=== PATIENT | male | born 1975 | race Caucasian/White ===

== ENCOUNTER 2019-07-16 05:44 | Day surgery (SDC) | payer OTHER ==
[2019-07-16] MEDS ORDERED: Nozin Nasal Sanitizer NASBOTH ONE (06:30)
[2019-07-16] MEDS ORDERED: Lactated Ringers 1,000 ML IV SCH (06:30)
[2019-07-16] MEDS ORDERED: ceFAZolin 1 GM in Premix Bag 1 BAG IV ONE (06:30)
[2019-07-16] MEDS ORDERED: Bupivacaine 0.5% 30 ML SDV ONE ×2 (06:46→07:28)
[2019-07-16] MEDS ORDERED: Midazolam 1 MG/ML 2 ML SDV ONE (07:26)
[2019-07-16] MEDS ORDERED: Propofol 200 MG/20 ML SDV ONE ×4 (07:26→10:05)
[2019-07-16] MEDS ORDERED: fentaNYL 100 MCG/2 ML SDV ONE ×2 (07:26→08:13)
--- NOTE | 2019-07-16 22:10 | OR ---
DATE OF PROCEDURE: 07/16/2019 SURGEON: Shen Szymanski MD PREOPERATIVE DIAGNOSES: 1. Partial-thickness rotator cuff tear. 2. Acromioclavicular arthrosis. 3. Possible superior labral tear. POSTOPERATIVE DIAGNOSES: 1. Partial rotator cuff tear, less than 50%. 2. Acromioclavicular arthrosis. 3. Superior labral tear. PROCEDURE: Arthroscopy right shoulder with: 1. Arthroscopic SLAP repair. 2. Decompression with acromioplasty and distal clavicle resection. ANESTHESIA: Block with sedation. INDICATIONS: Teofilo is a 44-year-old male with a history of persistent and progressive right shoulder pain. Examination and imaging are consistent with impingement, AC arthritis, and at least a partial thickness rotator cuff tear. Also has evidence of paralabral cyst and possible SLAP tear. He now presents to the operating room for evaluation of the right shoulder rotator cuff for possible repair as well as the labrum, and decompression with distal clavicle resection. Risks, benefits, and potential complications were discussed. DESCRIPTION OF PROCEDURE: After adequate anesthesia was obtained, patient placed in lateral decubitus position and secured with the beanbag positioner. Right shoulder and arm were then prepped and draped in sterile fashion. Ten pounds of traction was placed in shoulder traction unit. Standard posterior portal was established and the glenohumeral joint was inspected. This revealed no articular cartilage damage to the glenoid or humeral head. Fraying of the superior labrum was noted. Anterior labrum was intact. No evidence of Bankart lesion. Inferior and posterior labrum also intact. Biceps tendon showed some mild fraying at its attachment to the labrum with some very mild tendinopathy extending up to the base of the biceps. The superior aspect of the subscapularis also showed some very mild tendinopathy without evidence of tear. The undersurface of the rotator cuff had a small veil, superficial tear, which was less than 50% thickness of the supraspinatus and only approximately 4 to 5 mm in width. Anterior portal was established. The frayed aspect of the superior labrum was debrided and this revealed peel back of the superior labrum and the biceps attachment consistent with a SLAP tear. Small area on the underside of the rotator cuff was debrided again revealing the small partial-thickness tear. Shaver was used to debride the cartilage from the superior aspect of the glenoid. An accessory portal was then established through the rotator cuff interval and a ousmane was used to decorticate the superior glenoid. Drill guide was then placed just anterior to the biceps and a Mitek Gryphon anchor was secured. The sutures were brought out through the anterior portal. A 2nd anchor was then placed just posterior to the biceps and these were brought out through the accessory portal. A birdbeak suture grasper was then used to pass one limb of both the posterior anchor sutures around the labrum. The limb of 1 of the suture pairs in the anterior anchor was then passed in a similar fashion. The 2 posterior sutures were then tied down using standard arthroscopic technique with the knot behind the labrum. The more anterior one was evaluated and due to some deficiency of the labrum and the security of the posterior sutures, we decided to proceed with tying down just 1 set of sutures and the other was removed. Anterior sutures were tied and cut. The probe was then used to explore the repair, which was found to be quite stable. No other abnormalities were identified. The scope was removed and placed in the subacromial space. Significant amount of bursa was present. This was cleared using a combination of shaver and ablation wand. The bursa was somewhat adherent to the superior surface of the rotator cuff and was fairly erythematous. Undersurface of the acromion was identified and cleared of soft tissues with the ablation wand. Coracoacromial ligament was released from the anterolateral edge. A ousmane was then used to perform acromioplasty removing a portion of the undersurface of the acromion and bevelling this medially and posteriorly. Inferior osteophytes at the AC joint were readily visualized. The capsule was cleared with the ablation wand and starting from the lateral portal the undersurface of the distal clavicle was resected with a ousmane. The ousmane was then switched to the anterior portal and working from inferior to superior the distal clavicle was resected. Approximately 8 mm of the distal clavicle was resected. Once this was completed, the bursal surface of the rotator cuff was inspected. Arm was taken through internal and external rotation and abduction. The cuff was visualized and palpated with a probe with no evidence of full-thickness tear or significant thinning of the partial-thickness tear. The scope was withdrawn. Port sites were closed with 3-0 Monocryl and Steri-Strips were applied. Sterile dressing was then placed. The patient tolerated the procedure very well. There were no complications. He was taken from the operating room in stable condition. Shen Szymanski MD /[id number] MTDD
== END 2019-07-16 11:45 | disposition home or self-care (01) ==
LOC: JP.SDS 05:44
PROVIDERS: ATTEND Specialist
DX: M75.111 Incomplete rotator cuff tear or rupture of right shoulder, not specified as traumatic (principal); M19.011 Primary osteoarthritis, right shoulder; S43.431A Superior glenoid labrum lesion of right shoulder, initial encounter; F17.200 Nicotine dependence, unspecified, uncomplicated; X58.XXXA Exposure to other specified factors, initial encounter
CPT/HCPCS: 29807; 29824; 29826; 36415; 80053; 85027; A9270; C1713; J0690; J2250; J2704; J3010; J3490; J7120

== ENCOUNTER 2020-09-22 19:27 | Emergency (ER) | payer OTHER ==
[2020-09-22] MEDS ORDERED: Proparacaine 0.5% Ophth Soln 15 ML Bottle EYELF ONE (20:11)
--- NOTE | 2020-09-22 20:14 | EDM.PDOC ---
ED HPI GENERAL MEDICAL PROBLEM - General Chief Complaint: Eye Problems Stated Complaint: FOREIGN OBJECT IN L EYE Time Seen by Provider: 09/22/20 20:11 Source of Information: Reports: Patient History Limitations: Reports: No Limitations - History of Present Illness INITIAL COMMENTS - FREE TEXT/NARRATIVE: Teofilo is a 45-year-old male presenting to the ED for evaluation of left eye pain. The patient was using a plasma cutter today to cut metal and thinks he may have had a foreign body in the left eye. The eyes been red, very irritated, and watery. Patient reports his vision is still normal but it is just too painful to keep his eyelid open. The patient has previous history of UV keratitis from welding. Although he has protective eyewear, he was not wearing any protective eyewear or goggles today while using the plasma cutter. Left Eye Pain Score (Numeric/FACES): 8 - Related Data Allergies Allergy/AdvReac Type Severity Reaction Status Date / Time No Known Allergies Allergy Verified 07/16/19 06:26 Home Meds: Home Meds NK [No Known Home Meds] 06/28/13 [History] Past Medical History HEENT History: Reports: Hard of Hearing, Other (See Below) Other HEENT History: wears glasses Other Musculoskeletal History: BILATERAL SHOULDER PAIN - Infectious Disease History Infectious Disease History: Reports: Chicken Pox - Past Surgical History Head Surgeries/Procedures: Reports: None HEENT Surgical History: Reports: Tonsillectomy Musculoskeletal Surgical History: Reports: Other (See Below) Other Musculoskeletal Surgeries/Procedures:: right thumb amputation and reattachment Social & Family History - Tobacco Use Tobacco Use Status *Q: Current Status Unknown - Caffeine Use Caffeine Use: Reports: Coffee, Soda ED ROS GENERAL - Review of Systems Review Of Systems: See Below Constitutional: Reports: No Symptoms HEENT: Reports: Eye Discharge (Left eye with increased lacrimation), Eye Pain (Left eye pain), Vision Change (Photophobia left eye) ED EXAM GENERAL W FULL EYE - Physical Exam Exam: See Below Exam Limited By: No Limitations General Appearance: Alert, Mild Distress Eye Exam: Left Eye: Corneal Abrasion (Second-degree corneal burn at 6:00 to the pupil. This is at the lower edge of the iris and not in the [id number]. There are 3 lesions visible with fluorescein uptake.), Bilateral Eye: EOMI, PERRL Eyelids: Bilateral: Normal Appearance Cornea Exam: Right: Examined with Flourescein (Fluorescein uptake over the areas that are burned), Left: Corneal Ulcer (Corneal ulceration secondary to second- degree burn at 6:00 to the pupil at the edge of the iris.) Pupils: Normal Accommodation Pupillary Size: Bilateral: 4 mm Anterior Chamber: Left: Normal Appearance Posterior Chamber: Left: Normal Funduscopic Course - Vital Signs Last Recorded V/S: Last Vital Signs Temp 36.8 C 09/22/20 20:07 Pulse 89 09/22/20 20:07 Resp 20 09/22/20 20:07 BP 135/91 H 09/22/20 20:07 Pulse Ox 100 09/22/20 20:07 - Orders/Labs/Meds Meds: Medications Discontinued Medications Generic Name Dose Route Start Last Admin Trade Name Freq PRN Reason Stop Dose Admin Proparacaine HCl 0.1 ml 09/22/20 20:11 09/22/20 20:25 Proparacaine 0.5% Ophth Soln 15 Ml Bottle EYELF 09/22/20 20:12 1 dose ONETIME ONE Administration - Re-Assessments/Exams Free Text/Narrative Re-Assessment/Exam: 09/22/20 20:39 examination with fluorescein and the slit-lamp reveals that there are 3 distinct areas of wyman (second-degree) of the cornea overlying the lower border of the iris at 6:00 from the pupil. Plan is to treat these with er ythromycin ophthalmic ointment applied to the left eye 3 times a day for 3 days. This will provide lubrication, antimicrobial coverage, and some pain relief. I did instruct the patient that will make his vision blurry in that eye but will likely make him less photophobic. Indications to follow-up with ophthalmology or return to the ED were discussed and the patient is suitable for discharge in satisfactory condition. Departure - Departure Time of Disposition: 20:41 Disposition: Home, Self-Care 01 Clinical Impression: Corneal burn Qualifiers: Encounter type: initial encounter Laterality: left Qualified Code(s): T26.12XA - Burn of cornea and conjunctival sac, left eye, initial encounter - Discharge Information Referrals: PCP,None [Primary Care Provider] - Forms: ED Department Discharge Care Plan Goals: Examination today shows that you have wyman to the cornea secondary to the plasma cutter. I suspect that the metal splattered causing a small piece to hit the eye and causing the burn. We will treat this with erythromycin ophthalmic ointment instilled in the eye 3 times a day for 3 days which will help with pain, protect from infection, and lubricate the eye. Sepsis Event Note (ED) - Evaluation Sepsis Screening Result: No Definite Risk - Focused Exam Vital Signs: Vital Signs Temp Pulse Resp BP Pulse Ox 09/22/20 20:07 36.8 C 89 20 135/91 H 100 09/22/20 20:02 36.8 C 89 20 135/91 H 100 - Problem List & Annotations (1) Corneal burn SNOMED Code(s): 271809784 Code(s): T26.10XA - BURN OF CORNEA AND CONJUNCTIVAL SAC, UNSP EYE, INIT ENCNTR Status: Acute Priority: Medium Current Visit: Yes Qualifiers: Encounter type: initial encounter Laterality: left Qualified Code(s): T26.12XA - Burn of cornea and conjunctival sac, left eye, initial encounter - Problem List Review Problem List Initiated/Reviewed/Updated: Yes
== END 2020-09-22 20:52 | disposition home or self-care (01) ==
LOC: JP.ED 19:27
DX: T26.12XA Burn of cornea and conjunctival sac, left eye, initial encounter (principal); H16.002 Unspecified corneal ulcer, left eye
CPT/HCPCS: 99283; A9270